=== PATIENT | male | born 1990 | race Caucasian/White ===

== ENCOUNTER 2019-01-16 09:15 | Emergency (ER) | payer BC ==
--- NOTE | 2019-01-16 09:44 | EDM.PDOC ---
ED HPI GENERAL MEDICAL PROBLEM - General Chief Complaint: Chest Pain Stated Complaint: CHEST PAIN Time Seen by Provider: 01/16/19 09:44 - History of Present Illness INITIAL COMMENTS - FREE TEXT/NARRATIVE: HISTORY AND PHYSICAL: History of present illness: Patient is a 28-year-old white male presents with concern of chest pain this is vaguely described without associated shortness breath palpitations nausea vomiting or diaphoresis. Review of systems: As per history of present illness and below otherwise all systems reviewed and negative. Past medical history: As per history of present illness and as reviewed below otherwise noncontributory. Surgical history: As per history of present illness and as reviewed below otherwise noncontributory. Social history: No reported history of drug or alcohol abuse. Family history: As per history of present illness and as reviewed below otherwise noncontributory. Physical exam: HEENT: Atraumatic, normocephalic, pupils reactive, negative for conjunctival pallor or scleral icterus, mucous membranes moist, throat clear, neck supple, nontender, trachea midline. Lungs: Clear to auscultation, breath sounds equal bilaterally, chest nontender. Heart: S1S2, regular, negative for clicks, rubs, or JVD. Abdomen: Soft, nondistended, nontender. Negative for masses or hepatosplenomegaly. Negative for costovertebral tenderness. Pelvis: Stable nontender. Genitourinary: Deferred. Rectal: Deferred. Extremities: Atraumatic, negative for cords or calf pain. Neurovascular unremarkable. Neuro: Awake, alert, oriented. Cranial nerves II through XII unremarkable. Cerebellum unremarkable. Motor and sensory unremarkable throughout. Exam nonfocal. Diagnostics: Chest x-ray EKG Therapeutics: None Impression: #1 atypical chest Definitive disposition and diagnosis as appropriate pending reevaluation and review of above. Chest Pain Score (Numeric/FACES): 7 - Related Data Allergies Allergy/AdvReac Type Severity Reaction Status Date / Time No Known Allergies Allergy Verified 01/16/19 09:21 Home Meds: Home Meds . [No Known Home Meds] 01/16/19 [History] Past Medical History Cardiovascular History: Reports: [place] Psychiatric History: Reports: Anxiety - Infectious Disease History Infectious Disease History: Reports: None - Past Surgical History Musculoskeletal Surgical History: Reports: Shoulder Surgery Social & Family History - Family History Family Medical History: Noncontributory - Tobacco Use Smoking Status *Q: Current Every Day Smoker Years of Tobacco use: 3 Packs/Tins Daily: 1 - Caffeine Use Caffeine Use: Reports: Coffee, Energy Drinks - Recreational Drug Use Recreational Drug Use: No ED ROS GENERAL - Review of Systems Review Of Systems: ROS reveals no pertinent complaints other than HPI. ED EXAM, GENERAL - Physical Exam Exam: See Below (See dictation) Course - Vital Signs Last Recorded V/S: Last Vital Signs Temp 36.3 C 01/16/19 09:23 Pulse 75 01/16/19 09:23 Resp 18 01/16/19 09:23 BP 133/86 01/16/19 09:23 Pulse Ox 98 01/16/19 09:23 - Orders/Labs/Meds Orders: Active Orders 24 hr Category Date Time Status EKG 12 Lead [EKG Documentation Completion] [RC] STAT Care 01/16/19 09:21 Active Chest 1V Frontal [CR] Stat Exams 01/16/19 09:21 Taken Departure - Departure Time of Disposition: 09:43 Disposition: Home, Self-Care 01 Condition: Good Clinical Impression: Atypical chest pain - Discharge Information Additional Instructions: The following information is given to patients seen in the emergency department who are being discharged to home. This information is to outline your options for follow-up care. We provide all patients seen in our emergency department with a follow-up referral. The need for follow-up, as well as the timing and circumstances, are variable depending upon the specifics of your emergency department visit. If you don't have a primary care physician on staff, we will provide you with a referral. We always advise you to contact your personal physician following an emergency department visit to inform them of the circumstance of the visit and for follow-up with them and/or the need for any referrals to a consulting specialist. The emergency department will also refer you to a specialist when appropriate. This referral assures that you have the opportunity for followup care with a specialist. All of these measure are taken in an effort to provide you with optimal care, which includes your followup. Under all circumstances we always encourage you to contact your private physician who remains a resource for coordinating your care. When calling for followup care, please make the office aware that this follow-up is from your recent emergency room visit. If for any reason you are refused follow-up, please contact the [facility] emergency department at and asked to speak to the emergency department charge nurse. [facility] [address] [place] [id number] Stop smoking follow-up primary care above return as needed as discussed - My Orders Last 24 Hours: My Active Orders 01/16/19 09:21 EKG 12 Lead [EKG Documentation Completion] [RC] STAT Chest 1V Frontal [CR] Stat - Assessment/Plan Last 24 Hours: My Active Orders 01/16/19 09:21 EKG 12 Lead [EKG Documentation Completion] [RC] STAT Chest 1V Frontal [CR] Stat
--- NOTE | 2019-01-16 10:14 | CR ---
INDICATION: Chest pain, extremity weakness TECHNIQUE: Chest 1 view. COMPARISON: None available FINDINGS: Heart is normal in size. The pulmonary vasculature is normal limits. The lungs clear. There is an abnormal appearance of the distal right clavicle which could be postsurgical or posttraumatic. IMPRESSION: 1. Negative for acute cardiopulmonary process. 2. Abnormal appearance of the distal right clavicle, which could be post surgical or post traumatic. Recommend correlation with patient history. Dictated by Lauryn Pisano MD @ 01/16/2019 10:12:52 AM Dictated by: Lauryn Pisano MD @ 01/16/2019 10:13:14 (Electronically Signed)
== END 2019-01-16 09:52 | disposition home or self-care (01) ==
LOC: MW.ED 09:15
DX: R07.89 Other chest pain (principal); I25.2 Old myocardial infarction; F17.200 Nicotine dependence, unspecified, uncomplicated
CPT/HCPCS: 71045; 71045-26; 93005; 99282; 99285-25

== ENCOUNTER 2020-08-14 12:40 | Emergency (ER) | payer BC, OTHER ==
--- NOTE | 2020-08-14 13:04 | PCM.EKG ---
#1 Interpretation EKG Date: 08/14/20 Time: 12:58 Rhythm: NSR Rate (Beats/Min): 63 ST-T: Normal
[2020-08-14 13:40] LABS: BLOOD UREA NITROGEN,BUN 7 mg/dL (7.0-18.0); CARBON DIOXIDE,CO2 27.9 mmol/L (21.0-32.0); CHLORIDE,CL 105 mmol/L (98-107); GLUCOSE RANDOM 96 mg/dL (74-106); POTASSIUM,K 4.2 mmol/L (3.5-5.1); SODIUM,NA 140 mmol/L (136-148)
--- NOTE | 2020-08-14 15:14 | EDM.PDOC ---
ED HPI GENERAL MEDICAL PROBLEM - General Chief Complaint: Respiratory Problem Stated Complaint: COUGH / SOB Time Seen by Provider: 08/14/20 12:42 Source of Information: Reports: Patient History Limitations: Reports: No Limitations - History of Present Illness INITIAL COMMENTS - FREE TEXT/NARRATIVE: HISTORY AND PHYSICAL: History of present illness: Is a 30-year-old male who presents to the ED today with concern of cough, inspirational chest pain, and shortness of breath x 2 days. Patient states that initially when the symptoms started 2 to 3 days ago, it began with diarrhea and nausea. Patient states the diarrhea has subsided but he has developed a cough and states that he has chest pain that is worse when he takes a deep breath in and is nonexertional. Patient also complains of shortness of breath stating he feels like he "needs to take deep breaths "every once in a while. Patient states that he does smoke cigarettes does have a baseline cough but states that he has noticed a worsening cough than usual. Patient states he is concerned of COVID-19 infection. Denies any other symptoms or concerns. Patient denies fever, chills, chest pain, shortness of breath, or cough. Denies headache, neck stiff ness, change in vision, syncope, or near syncope. Denies nausea, vomiting, abdominal pain, diarrhea, constipation, or dysuria. Has not noted any blood in urine or stool. Patient has been eating and drinking appropriately. Review of systems: As per history of present illness and below otherwise all systems reviewed and negative. Past medical history: As per history of present illness and as reviewed below otherwise noncontributory. Surgical history: As per history of present illness and as reviewed below otherwise noncontributory. Social history: See social history for further information Family history: As per history of present illness and as reviewed below otherwise noncontributory. Physical exam: General: Patient is alert, oriented, and in no acute distress. Patient sitting comfortably on exam table. Vitals stable and reviewed by me. HEENT: Atraumatic, normocephalic, pupils equal and reactive bilaterally, negative for conjunctival pallor or scleral icterus, mucous membranes moist, TMs normal bilaterally, throat clear, neck supple, nontender, trachea midline. No drooling or trismus noted. No meningeal signs. No hot potato voice noted. Lungs: Clear to auscultation, breath sounds equal bilaterally, chest nontender. Heart: S1S2, regular rate and rhythm without overt murmur Abdomen: Soft, nondistended, nontender. Negative for masses or hepatosplenomegaly. Negative for costovertebral tenderness. Pelvis: Stable nontender. Genitourinary: Deferred. Rectal: Deferred. Skin: Intact, warm, dry. No lesions or rashes noted. Extremities: Atraumatic, negative for cords or calf pain. Neurovascular unremarkable. Neuro: Awake, alert, oriented. Cranial nerves II through XII unremarkable. Cerebellum unremarkable. Motor and sensory unremarkable throughout. Exam nonfocal. Notes: Patient is a 30-year-old male who presents to the ED today secondary to nonexertional inspirational chest pain, worsening cough, and shortness of breath that has been constant x2 days. On initial exam, patient is vitally stable, nontoxic, and well-appearing. Patient does have an extensive smoking history but is otherwise low risk for ACS with a heart score of 2, low risk. Will perform cardiac evaluation. See Dr. Dowling's dictation for specific EKG interpretation. Otherwise, no STEMI, normal sinus rhythm CBC is remarkable for a mild leukocytosis at 13.7 without signs of shift. Remainder of CBC is unremarkable. CMP unremarkable. Troponin is negative. Covid negative. Chest x-ray shows mild hyperinflation and central bronchial thickening without dense consolidation. Upon reevaluation of patient, he remains vitally stable and comfortable throughout stay in ED. Patient does not have a diagnosis of known COPD, however, does express worsening chronic cough, with extensive smoking history of 1 pack a day for "many years" with hyperinflation on CXR with bronchial thickening, will treat as a possible COPD exacerbation vs acute bronchitis with Azithromycin, Medrol Dose pack, and albuterol inhaler with instruction for close follow up with his primary care provider. Signs and symptoms that were prompt return to the ED thoroughly discussed with patient. Discussed importance for follow-up with a primary care provider. Voices understanding and is agreeable to plan of care. Denies any further questions or concerns at this time. Diagnostics: EKG, CBC, CMP, UA, chest x-ray, troponin, COVID Therapeutics: None Prescription: Azithromycin, Medrol dose pack, Albuterol inhaler Impression: Acute bronchitis Plan: 1. Use cough drops and/or other over the counter medications as needed for throat discomfort as discussed. Drink small but frequent sips of fluid to prevent dehydration. Stop smoking. 2. Alternate Ibuprofen and Tylenol as directed for pain and discomfort. Take medication as prescribed. 3. Follow up with your primary care provider as discussed. 4. Return to the ED as needed and as discussed. Definitive disposition and diagnosis as appropriate pending reevaluation and review of above. Chest Pain Score (Numeric/FACES): 4 - Related Data Allergies Allergy/AdvReac Type Severity Reaction Status Date / Time No Known Allergies Allergy Verified 01/16/19 09:21 Home Meds: Home Meds Albuterol Sulfate [Proair Hfa] 8.5 gm IH Q8HR PRN #1 [email or web address] 08/14/20 [Rx] Azithromycin 250 mg PO DAILY 5 Days #6 tablet 08/14/20 [Rx] methylPREDNISolone [Medrol] 4 mg PO ASDIRECTED #1 dosepk 08/14/20 [Rx] Past Medical History - Past Health History Medical/Surgical History: Denies Medical/Surgical History Cardiovascular History: Reports: [place] Psychiatric History: Reports: Anxiety - Infectious Disease History Infectious Disease History: Reports: None - Past Surgical History HEENT Surgical History: Reports: Oral Surgery Musculoskeletal Surgical History: Reports: Shoulder Surgery Social & Family History - Family History Family Medical History: No Pertinent Family History - Caffeine Use Caffeine Use: Reports: None - Recreational Drug Use Recreational Drug Use: No ED ROS GENERAL - Review of Systems Review Of Systems: Comprehensive ROS is negative, except as noted in HPI. ED EXAM, GENERAL - Physical Exam Exam: See Below (see dictation) Course - Vital Signs Last Recorded V/S: Last Vital Signs Temp 97.0 F 08/14/20 12:51 Pulse 73 08/14/20 12:51 Resp 17 08/14/20 12:51 BP 148/103 H 08/14/20 12:51 Pulse Ox 97 08/14/20 12:51 - Orders/Labs/Meds Orders: Active Orders 24 hr Category Date Time Status EKG Documentation Completion [RC] STAT Care 08/14/20 12:55 Active Chest 1V Frontal [CR] Stat Exams 08/14/20 12:59 Ordered Labs: Laboratory Tests 08/14/20 08/14/20 08/14/20 Range/Units 12:59 13:07 13:07 WBC 13.74 H (4.0-11.0) K/uL RBC 5.15 (4.50-5.90) M/uL Hgb 15.5 (13.0-17.0) g/dL Hct 45.4 (38.0-50.0) % MCV 88.2 (80.0-98.0) fL MCH 30.1 (27.0-32.0) pg MCHC 34.1 (31.0-37.0) g/dL RDW Std Deviation 44.1 (28.0-62.0) fl RDW Coeff of Isaías 14 (11.0-15.0) % Plt Count 215 (150-400) K/uL MPV 10.20 (7.40-12.00) fL Neut % (Auto) 71.1 (48.0-80.0) % Lymph % (Auto) 21.3 (16.0-40.0) % Stanley % (Auto) 6.0 (0.0-15.0) % Eos % (Auto) 1.2 (0.0-7.0) % Baso % (Auto) 0.4 (0.0-1.5) % Neut # (Auto) 9.8 H (1.4-5.7) K/uL Lymph # (Auto) 2.9 H (0.6-2.4) K/uL Stanley # (Auto) 0.8 (0.0-0.8) K/uL Eos # (Auto) 0.2 (0.0-0.7) K/uL Baso # (Auto) 0.1 (0.0-0.1) K/uL Nucleated RBC % 0.0 /100WBC Nucleated RBCs # 0 K/uL Sodium 140 (136-148) mmol/L Potassium 4.2 (3.5-5.1) mmol/L Chloride 105 (98-107) mmol/L Carbon Dioxide 27.9 (21.0-32.0) mmol/L BUN 7 (7.0-18.0) mg/dL Creatinine 1.2 (0.8-1.3) mg/dL Est Cr Clr Drug Dosing 91.25 mL/min Estimated GFR (MDRD) > 60.0 ml/min Glucose 96 (74-106) mg/dL Calcium 9.1 (8.5-10.1) mg/dL Total Bilirubin 0.4 (0.2-1.0) mg/dL AST 34 (15-37) IU/L ALT 51 (14-63) IU/L Alkaline Phosphatase 84 (46-116) U/L Troponin I < 0.050 (0.000-0.056) ng/mL Total Protein 7.2 (6.4-8.2) g/dL Albumin 3.7 (3.4-5.0) g/dL Globulin 3.5 (2.6-4.0) g/dL Albumin/Globulin Ratio 1.1 (0.9-1.6) SARS-CoV-2 RNA (VIGNESH) NEGATIVE (NEGATIVE) Departure - Departure Time of Disposition: 15:07 Disposition: Home, Self-Care 01 Clinical Impression: Acute bronchitis Qualifiers: Bronchitis organism: unspecified organism Qualified Code(s): J20.9 - Acute bronchitis, unspecified - Discharge Information Prescriptions: methylPREDNISolone [Medrol] 4 mg PO ASDIRECTED #1 dosepk Albuterol Sulfate [Proair Hfa] 8.5 gm IH Q8HR PRN #1 hfa.[email or web address] PRN Reason: Cough Referrals: Grey Ellington, [employer] [Primary Care Provider] - Additional Instructions: The following information is given to patients seen in the emergency department who are being discharged to home. This information is to outline your options for follow-up care. We provide all patients seen in our emergency department with a follow-up referral. The need for follow-up, as well as the timing and circumstances, are variable depending upon the specifics of your emergency department visit. If you don't have a primary care physician on staff, we will provide you with a referral. We always advise you to contact your personal physician following an emergency department visit to inform them of the circumstance of the visit and for follow-up with them and/or the need for any referrals to a consulting specialist. The emergency department will also refer you to a specialist when appropriate. This referral assures that you have the opportunity for follow-up care with a specialist. All of these measure are taken in an effort to provide you with optimal care, which includes your follow-up. Under all circumstances we always encourage you to contact your private physician who remains a resource for coordinating your care. When calling for follow-up care, please make the office aware that this follow-up is from your recent emergency room visit. If for any reason you are refused follow-up, please contact the [facility] Emergency Department at and asked to speak to the emergency department charge nurse. [facility] [address] [place] [address] [facility] [address] [place] [phone] 1. Use cough drops and/or other over the counter medications as needed for throat discomfort as discussed. Drink small but frequent sips of fluid to prevent dehydration. Stop smoking. 2. Alternate Ibuprofen and Tylenol as directed for pain and discomfort. Take medication as prescribed. 3. Follow up with your primary care provider as discussed. 4. Return to the ED as needed and as discussed. Sepsis Event Note (ED) - Evaluation Sepsis Screening Result: No Definite Risk - Focused Exam Vital Signs: Vital Signs Temp Pulse Resp BP Pulse Ox 08/14/20 12:51 97.0 F 73 17 148/103 H 97 - My Orders Last 24 Hours: My Active Orders 08/14/20 12:55 EKG Documentation Completion [RC] STAT 08/14/20 12:59 Chest 1V Frontal [CR] Stat - Assessment/Plan Last 24 Hours: My Active Orders 08/14/20 12:55 EKG Documentation Completion [RC] STAT 08/14/20 12:59 Chest 1V Frontal [CR] Stat
--- NOTE | 2020-08-14 15:18 | CR ---
EXAM DATE: 08/14/20 PATIENT'S AGE: 30 Patient: NEFTALI SINHA Facility: [facility] Site . Site : [id number] Study: XRay-Chest -08/14/2020 2:13:27 PM Ordering Physician: ed provider Final Report: Indication: Chest pain shortness of breath Comparison: Single-view chest January 16, 2019 Technique: Single AP view chest Findings: There is hyperinflation and mild central bronchial thickening. There is no focal consolidation, effusion, or pneumothorax. The cardiomediastinal silhouette is within normal limits. The bony thorax is grossly intact. Impression: Mild hyperinflation and central bronchial thickening without dense consolidation. Dictated by Ranjit Moies MD @ 08/14/2020 2:37:59 PM Signed by: Ranjit Moise MD @08/14/2020 2:37:59 PM (Electronic Signature) Report Signed by Proxy. [email or web address]
== END 2020-08-14 15:17 | disposition home or self-care (01) ==
LOC: MW.ED 12:40
DX: J20.9 Acute bronchitis, unspecified (principal); I25.2 Old myocardial infarction; Z20.822 Contact with and (suspected) exposure to COVID-19
CPT/HCPCS: 36415; 71045; 71045-26; 80053; 84484; 85025; 93005; 93010; 99283; 99285-25; U0002

== ENCOUNTER 2020-09-07 03:02 | Emergency (ER) | payer OTHER ==
--- NOTE | 2020-09-07 03:07 | EDM.PDOC ---
ED HPI GENERAL MEDICAL PROBLEM - General Chief Complaint: Respiratory Problem Stated Complaint: SHORTNESS OF BREATH Time Seen by Provider: 09/07/20 03:03 Source of Information: Reports: Patient, EMS, Police History Limitations: Reports: No Limitations - History of Present Illness INITIAL COMMENTS - FREE TEXT/NARRATIVE: 30-year-old male no past medical history presents for shortness of breath. History is from patient, EMS, police. Patient was arrested for driving under the influence. He was noted to have no respiratory distress, speaking normally, ambulating normally, aggressive towards police. Shortly after arrival to alf patient began complaining of shortness of breath and inability to speak. Patient notes that the symptoms have been going on for roughly 1 month. He notes that he has an inhaler which does not seem to help. He was seen in the emergency department a couple of weeks ago and had a negative emergent work-up. Middle Back Pain Score (Numeric/FACES): 8 - Related Data Allergies Allergy/AdvReac Type Severity Reaction Status Date / Time No Known Allergies Allergy Verified 01/16/19 09:21 Home Meds: Home Meds Albuterol Sulfate [Proair Hfa] 8.5 gm IH Q8HR PRN #1 hfa.[email or web address] 08/14/20 [Rx] Azithromycin 250 mg PO DAILY 5 Days #6 tablet 08/14/20 [Rx] methylPREDNISolone [Medrol] 4 mg PO ASDIRECTED #1 dosepk 08/14/20 [Rx] Past Medical History - Past Health History Medical/Surgical History: Denies Medical/Surgical History Cardiovascular History: Reports: [place] Psychiatric History: Reports: Anxiety - Infectious Disease History Infectious Disease History: Reports: None - Past Surgical History HEENT Surgical History: Reports: Oral Surgery Musculoskeletal Surgical History: Reports: Shoulder Surgery Social & Family History - Family History Family Medical History: No Pertinent Family History - Caffeine Use Caffeine Use: Reports: None ED ROS GENERAL - Review of Systems Review Of Systems: Comprehensive ROS is negative, except as noted in HPI. ED EXAM, GENERAL - Physical Exam Exam: See Below Exam Limited By: No Limitations General Appearance: Alert, WD/WN, No Apparent Distress, Anxious Eye Exam: Bilateral Eye: EOMI, PERRL Ears: Normal External Exam Throat/Mouth: Normal Voice, No Airway Compromise Head: Atraumatic, Normocephalic Neck: Normal Inspection, Non-Tender Respiratory/Chest: No Respiratory Distress, Lungs Clear, Normal Breath Sounds, No Accessory Muscle Use Cardiovascular: Normal Peripheral Pulses, Regular Rate, Rhythm GI/Abdominal: Soft, Non-Tender Extremities: Normal Inspection Neurological: Alert Psychiatric: Normal Affect, Normal Mood, Anxious Skin Exam: Warm, Dry, Intact #1 Interpretation EKG Date: 09/07/20 Time: 03:08 Rhythm: NSR Rate (Beats/Min): 105 [place]: Normal P-Wave: Present QRS: Normal ST-T: Normal QT: Normal NH/PQ Interval: 154 EKG Interpretation Comments: normal EKG Course - Vital Signs Last Recorded V/S: Last Vital Signs Temp 97.8 F 09/07/20 03:04 Pulse 92 09/07/20 03:04 Resp 26 H 09/07/20 03:04 BP 131/101 H 09/07/20 03:04 Pulse Ox 100 09/07/20 03:04 - Orders/Labs/Meds Orders: Active Orders 24 hr Category Date Time Status EKG 12 Lead [EKG Documentation Completion] [RC] STAT Care 09/07/20 03:04 Active Chest 1V Frontal [CR] Stat Exams 09/07/20 03:04 Taken - Re-Assessments/Exams Free Text/Narrative Re-Assessment/Exam: 09/07/20 03:07 We will get chest x-ray and EKG to rule out emergent cardiopulmonary pathology. We will follow up results and disposition accordingly 09/07/20 03:58 Chest x-ray and EKG are unremarkable. Patient was able to ambulate to bathroom without assistance. Will discharge to custody of PD. Return precautions discussed and documented in educational discharge instructions. Departure - Departure Time of Disposition: 03:58 Disposition: DC/Tfer to Court of Law En 21 Condition: Good Clinical Impression: Anxiety - Discharge Information Instructions: Managing Anxiety, Adult Forms: ED Department Discharge Additional Instructions: Your emergency department work-up was unremarkable. You should follow-up with a primary care physician. If you are experiencing chest pain, difficulty breathing, or any new or concerning symptom development you are encouraged to return to the emergency department immediately. The following information is given to patients seen in the emergency department who are being discharged to home. This information is to outline your options for follow-up care. We provide all patients seen in our emergency department with a follow-up referral. The need for follow-up, as well as the timing and circumstances, are variable depending upon the specifics of your emergency department visit. If you don't have a primary care physician on staff, we will provide you with a referral. We always advise you to contact your personal physician following an emergency department visit to inform them of the circumstance of the visit and for follow-up with them and/or the need for any referrals to a consulting specialist. The emergency department will also refer you to a specialist when appropriate. This referral assures that you have the opportunity for follow-up care with a specialist. All of these measure are taken in an effort to provide you with optimal care, which includes your follow-up. Under all circumstances we always encourage you to contact your private physician who remains a resource for coordinating your care. When calling for follow-up care, please make the office aware that this follow-up is from your recent emergency room visit. If for any reason you are refused follow-up, please contact the [facility] Emergency Department at and asked to speak to the emergency department charge nurse. Please follow up with your primary care physician. If you do not have a primary care physician, see below: [facility] [address] [place] [id number] [facility] [address] [place] [id number] [facility] [address] [place] [id number] Sepsis Event Note (ED) - Focused Exam Vital Signs: Vital Signs Temp Pulse Resp BP Pulse Ox 09/07/20 03:04 97.8 F 92 26 H 131/101 H 100 - My Orders Last 24 Hours: My Active Orders 09/07/20 03:04 EKG 12 Lead [EKG Documentation Completion] [RC] STAT Chest 1V Frontal [CR] Stat - Assessment/Plan Last 24 Hours: My Active Orders 09/07/20 03:04 EKG 12 Lead [EKG Documentation Completion] [RC] STAT Chest 1V Frontal [CR] Stat
--- NOTE | 2020-09-07 04:53 | CR ---
INDICATION: Shortness of breath. TECHNIQUE: Portable AP chest radiograph. COMPARISON: 08/14/2020. FINDINGS: Low lung volumes without focal opacity, pneumothorax, or pleural effusion. Normal cardiac and mediastinal contours. IMPRESSION: Low volume study without acute cardiopulmonary findings. Dictated by Asad Doss MD @ 09/07/2020 4:51:18 AM Dictated by: Asad Doss MD @ 09/07/2020 04:51:25 (Electronically Signed)
== END 2020-09-07 04:07 | disposition home or self-care (01) ==
LOC: MW.ED 03:02
DX: F41.9 Anxiety disorder, unspecified (principal)
CPT/HCPCS: 71045; 71045-26; 93005; 93010; 99283; 99285-25

== ENCOUNTER 2020-11-19 15:09 | Emergency (ER) | payer OTHER ==
[2020-11-19] MEDS ORDERED: Sodium Chloride 0.9% 1,000 ML IV ONE ×2 (16:58→17:44)
[2020-11-19] MEDS ORDERED: Sodium Chloride 0.9% 2.5 ML Syringe FLUSH PRN (16:58)
[2020-11-19] MEDS ORDERED: Sodium Chloride 0.9% 10 ML Syringe FLUSH PRN (16:58)
--- NOTE | 2020-11-19 17:25 | PCM.EKG ---
#1 Interpretation EKG Date: 11/19/20 Time: 17:20 Rhythm: NSR Rate (Beats/Min): 56 [place]: Normal P-Wave: Present QRS: Normal ST-T: Normal QT: Normal OR/PQ Interval: 158 Comparison: No Change EKG Interpretation Comments: no acute ischemic changes
[2020-11-19] MEDS ORDERED: Ketorolac 30 MG/ML SDV IVPUSH ONE (17:42)
[2020-11-19] MEDS ORDERED: Ondansetron 4 MG/2 ML SDV IVPUSH ONE (17:42)
--- NOTE | 2020-11-19 18:10 | CR ---
INDICATION: N/V/D. TECHNIQUE: Chest 1 view. COMPARISON: 09/07/20 FINDINGS: Cardiovascular and mediastinum: Heart size and vasculature are normal in caliber and appearance. Mediastinum is within normal limits. Lungs and pleural space: Lungs are clear. No sign of infiltrate or mass. No sign of pleural effusion. No pneumothorax. Bones and soft tissues: No significant findings. IMPRESSION: Unremarkable chest. Dictated by: Mick Moy MD @ 11/19/2020 18:08:14 (Electronically Signed)
[2020-11-19 18:11] LABS: BLOOD UREA NITROGEN,BUN 6 mg/dL (7.0-18.0); CARBON DIOXIDE,CO2 25.1 mmol/L (21.0-32.0); CHLORIDE,CL 104 mmol/L (98-107); GLUCOSE RANDOM 99 mg/dL (74-106); LIPASE 72 U/L (73-393); POTASSIUM,K 4.2 mmol/L (3.5-5.1); SODIUM,NA 140 mmol/L (136-148)
[2020-11-19] MEDS ORDERED: Metoclopramide 10 MG/2 ML SDV IV ONE (18:34)
[2020-11-19 19:05] LABS: INFLUENZA A NAA NEGATIVE (NEGATIVE); INFLUENZA B NAA NEGATIVE (NEGATIVE)
[2020-11-19 19:08] LABS: CORONAVIRUS COVID-19 NAA NEGATIVE (NEGATIVE)
--- NOTE | 2020-11-19 19:09 | EDM.PDOC ---
ED HPI GENERAL MEDICAL PROBLEM - General Chief Complaint: General Stated Complaint: NAUSEA Time Seen by Provider: 11/19/20 15:11 Source of Information: Reports: Patient History Limitations: Reports: No Limitations - History of Present Illness INITIAL COMMENTS - FREE TEXT/NARRATIVE: HISTORY AND PHYSICAL: History of present illness: Patient is a 30-year-old male who presents emergency room today with concern of nausea, vomiting, diarrhea and upper abdominal pain that has started today. Patient states 1 week ago, he had a cough, loss of taste and smell, and stuffy nose. Patient states that resolved but today he began feeling unwell again. Patient states that he took ibuprofen and some Tylenol earlier today with mild relief of his symptoms. Patient states that he does smoke so does have a "chronic smoker's cough "and states that this has improved since 1 week ago. Patient states when he did have his symptoms 1 week ago, he did have chest pain and shortness of breath but this is now improved. Patient denies fever, chills, chest pain, shortness of breath. Denies headache, neck stiff ness, change in vision, syncope, or near syncope. Denies constipation, or dysuria. Has not noted any blood in urine or stool. Patient has been eating and drinking appropriately. Review of systems: As per history of present illness and below otherwise all systems reviewed and negative. Past medical history: As per history of present illness and as reviewed below otherwise noncontributory. Surgical history: As per history of present illness and as reviewed below otherwise noncontributory. Social history: See social history for further information Family history: As per history of present illness and as reviewed below otherwise noncontributory. Physical exam: General: Patient is alert, oriented, and in no acute distress. Patient sitting comfortably on exam table. Vitals stable and reviewed by me. HEENT: Atraumatic, normocephalic, pupils equal and reactive bilaterally, negative for conjunctival pallor or scleral icterus, mucous membranes moist, TMs normal bilaterally, throat clear, neck supple, nontender, trachea midline. No drooling or trismus noted. No meningeal signs. No hot potato voice noted. Lungs: Clear to auscultation, breath sounds equal bilaterally, chest nontender. Heart: S1S2, regular rate and rhythm without overt murmur Abdomen: Soft, nondistended, mild upper abdominal tenderness without guarding, negative carey/negative rebound. Negative for masses or hepatosplenomegaly. Negative for costovertebral tenderness. Pelvis: Stable nontender. Genitourinary: Deferred. Rectal: Deferred. Skin: Intact, warm, dry. No lesions or rashes noted. Extremities: Atraumatic, negative for cords or calf pain. Neurovascular unremarkable. Neuro: Awake, alert, oriented. Cranial nerves II through XII unremarkable. Cerebellum unremarkable. Motor and sensory unremarkable throughout. Exam nonfocal. Notes: Patient is a 30-year-old, otherwise healthy male, who presents emergency room today with concern of nausea, vomiting, diarrhea and upper abdominal pain starting this morning with a recent history of cough, chest pain, shortness of breath which is now improved. Upon arrival to the ED, patient is vitally stable and well-appearing on exam. Patient does have some mild upper abdominal tenderness with negative rebound and negative Carey. Will obtain cardiac evaluation as well as provide fluids, Zofran and reassess patient. See Dr. King's dictation for specific EKG interpretation. However, normal sinus rhythm without STEMI CBC shows a leukocytosis of 14.75 (Lactate is within normal limits at 0.9 ), otherwise mild derangements of CBC unremarkable. CMP mild derangements are unremarkable. Lipase is within normal limits. Troponin is negative. Urinalysis is clear of infection. Covid and influenza negative. Chest x-ray shows no acute cardiopulmonary findings. While awaiting for abdominal pelvic CT scan, patient told nursing staff he wanted to leave the emergency room AGAINST MEDICAL ADVICE. The patient is clinically not intoxicated, free from distracting pain, appears to have intact insight, judgment and reason and in my medical opinion has the capacity to make decisions. The patient is also not under any duress to leave the hospital. In this scenario, it would be battery to subject a patient to treatment against his will. I have voiced my concerns for the patient's health given that a full evaluation and treatment had not occurred. I have discussed the need for continued evaluation to determine if their symptoms are caused by a condition that present risk of or morbidity. Risks including but not limited to , permanent disability, prolonged hospitalization, prolonged illness, were discussed. I answered all of his questions about his condition and asked them to return to the ED as soon as possible to complete their evaluation, especially if their symptoms worsen or do not improve. I emphasized that leaving against medical advice does not preclude returning here for further evaluation. I asked the patient to return if he change his mind about the further evaluation and treatment. I strongly encouraged the patient to return to this Emergency Department or any Emergency Department at any time, particularly with worsening symptoms. Diagnostics: EKG, CBC, CMP, UA, CXR, Trop, lipase, lactate, Abd/pelvic ct w cont Therapeutics: NS, Toradol, Zofran, Reglan Prescription: None Impression: Nausea and vomiting Diarrhea Abdominal pain, unspecified Leukocytosis Left AGAINST MEDICAL ADVICE Plan: 1. You can alternate ibuprofen and Tylenol as directed for pain and discomfort. 2. Follow-up with a primary care provider as discussed. Return to the ED at anytime for continued evaluation as discussed as needed. Definitive disposition and diagnosis as appropriate pending reevaluation and review of above. Bilateral Abdomen Pain Score (Numeric/FACES): 5 - Related Data Allergies Allergy/AdvReac Type Severity Reaction Status Date / Time No Known Allergies Allergy Verified 01/16/19 09:21 Home Meds: Home Meds Albuterol Sulfate [Proair Hfa] 8.5 gm IH Q8HR PRN #1 hfa.[email or web address] 08/14/20 [Rx] Azithromycin 250 mg PO DAILY 5 Days #6 tablet 08/14/20 [Rx] methylPREDNISolone [Medrol] 4 mg PO ASDIRECTED #1 dosepk 08/14/20 [Rx] Past Medical History - Past Health History Medical/Surgical History: Denies Medical/Surgical History Cardiovascular History: Reports: [place] Musculoskeletal History: Reports: Back Pain, Chronic Psychiatric History: Reports: Anxiety - Infectious Disease History Infectious Disease History: Reports: None - Past Surgical History HEENT Surgical History: Reports: Oral Surgery Musculoskeletal Surgical History: Reports: Shoulder Surgery Social & Family History - Family History Family Medical History: No Pertinent Family History - Tobacco Use Tobacco Use Status *Q: Current Every Day Tobacco User Years of Tobacco use: 10 Packs/Tins Daily: 0.5 - Caffeine Use Caffeine Use: Reports: Coffee - Recreational Drug Use Recreational Drug Use: No ED ROS GENERAL - Review of Systems Review Of Systems: Comprehensive ROS is negative, except as noted in HPI. ED EXAM, GENERAL - Physical Exam Exam: See Below (see dictation) Course - Vital Signs Last Recorded V/S: Last Vital Signs Temp 98.2 F 11/19/20 17:34 Pulse 63 11/19/20 19:01 Resp 18 11/19/20 19:01 BP 143/86 H 11/19/20 19:01 Pulse Ox 97 11/19/20 19:01 - Orders/Labs/Meds Orders: Active Orders 24 hr Category Date Time Status Saline Lock Insert [OM.PC] Stat Oth 11/19/20 16:58 Ordered Labs: Laboratory Tests 11/19/20 11/19/20 11/19/20 Range/Units 17:20 17:20 17:28 WBC 14.75 H (4.0-11.0) K/uL RBC 5.09 (4.50-5.90) M/uL Hgb 14.8 (13.0-17.0) g/dL Hct 43.3 (38.0-50.0) % MCV 85.1 (80.0-98.0) fL MCH 29.1 (27.0-32.0) pg MCHC 34.2 (31.0-37.0) g/dL RDW Std Deviation 40.3 (28.0-62.0) fl RDW Coeff of Iasías 13 (11.0-15.0) % Plt Count 226 (150-400) K/uL MPV 10.40 (7.40-12.00) fL Neut % (Auto) 76.2 (48.0-80.0) % Lymph % (Auto) 18.2 (16.0-40.0) % [place] % (Auto) 4.8 (0.0-15.0) % Eos % (Auto) 0.6 (0.0-7.0) % Baso % (Auto) 0.2 (0.0-1.5) % Neut # (Auto) 11.2 H (1.4-5.7) K/uL Lymph # (Auto) 2.7 H (0.6-2.4) K/uL [place] # (Auto) 0.7 (0.0-0.8) K/uL Eos # (Auto) 0.1 (0.0-0.7) K/uL Baso # (Auto) 0.0 (0.0-0.1) K/uL Nucleated RBC % 0.0 /100WBC Nucleated RBCs # 0 K/uL Sodium 140 (136-148) mmol/L Potassium 4.2 (3.5-5.1) mmol/L Chloride 104 (98-107) mmol/L Carbon Dioxide 25.1 (21.0-32.0) mmol/L BUN 6 L (7.0-18.0) mg/dL Creatinine 0.9 (0.8-1.3) mg/dL Est Cr Clr Drug Dosing 117.83 mL/min Estimated GFR (MDRD) > 60.0 ml/min Glucose 99 (74-106) mg/dL Lactic Acid (0.4-2.0) mmol/L Calcium 8.3 L (8.5-10.1) mg/dL Total Bilirubin 0.3 (0.2-1.0) mg/dL AST 31 (15-37) IU/L ALT 42 (14-63) IU/L Alkaline Phosphatase 79 (46-116) U/L Troponin I < 0.050 (0.000-0.056) ng/mL Total Protein 7.0 (6.4-8.2) g/dL Albumin 3.8 (3.4-5.0) g/dL Globulin 3.2 (2.6-4.0) g/dL Albumin/Globulin Ratio 1.2 (0.9-1.6) Lipase 72 L (73-393) U/L Urine Color Urine Appearance Urine pH (5.0-8.0) Ur Specific [place] (1.001-1.035) Urine Protein (NEGATIVE) mg/dL Urine Glucose (UA) (NEGATIVE) mg/dL Urine Ketones (NEGATIVE) mg/dL Urine Occult Blood (NEGATIVE) Urine Nitrite (NEGATIVE) Urine Bilirubin (NEGATIVE) Urine Urobilinogen (<2.0) EU/dL Ur Leukocyte Esterase (NEGATIVE) Influenza Type A RNA NEGATIVE (NEGATIVE) Influenza Type B RNA NEGATIVE (NEGATIVE) SARS-CoV-2 RNA (VIGNESH) NEGATIVE (NEGATIVE) 11/19/20 11/19/20 Range/Units 18:10 18:25 WBC (4.0-11.0) K/uL RBC (4.50-5.90) M/uL Hgb (13.0-17.0) g/dL Hct (38.0-50.0) % MCV (80.0-98.0) fL MCH (27.0-32.0) pg MCHC (31.0-37.0) g/dL RDW Std Deviation (28.0-62.0) fl RDW Coeff of Isaías (11.0-15.0) % Plt Count (150-400) K/uL MPV (7.40-12.00) fL Neut % (Auto) (48.0-80.0) % Lymph % (Auto) (16.0-40.0) % [place] % (Auto) (0.0-15.0) % Eos % (Auto) (0.0-7.0) % Baso % (Auto) (0.0-1.5) % Neut # (Auto) (1.4-5.7) K/uL Lymph # (Auto) (0.6-2.4) K/uL [place] # (Auto) (0.0-0.8) K/uL Eos # (Auto) (0.0-0.7) K/uL Baso # (Auto) (0.0-0.1) K/uL Nucleated RBC % /100WBC Nucleated RBCs # K/uL Sodium (136-148) mmol/L Potassium (3.5-5.1) mmol/L Chloride (98-107) mmol/L Carbon Dioxide (21.0-32.0) mmol/L BUN (7.0-18.0) mg/dL Creatinine (0.8-1.3) mg/dL Est Cr Clr Drug Dosing mL/min Estimated GFR (MDRD) ml/min Glucose (74-106) mg/dL Lactic Acid 0.9 (0.4-2.0) mmol/L Calcium (8.5-10.1) mg/dL Total Bilirubin (0.2-1.0) mg/dL AST (15-37) IU/L ALT (14-63) IU/L Alkaline Phosphatase (46-116) U/L Troponin I (0.000-0.056) ng/mL Total Protein (6.4-8.2) g/dL Albumin (3.4-5.0) g/dL Globulin (2.6-4.0) g/dL Albumin/Globulin Ratio (0.9-1.6) Lipase (73-393) U/L Urine Color YELLOW Urine Appearance CLEAR Urine pH 6.0 (5.0-8.0) Ur Specific [place] 1.010 (1.001-1.035) Urine Protein NEGATIVE (NEGATIVE) mg/dL Urine Glucose (UA) NEGATIVE (NEGATIVE) mg/dL Urine Ketones NEGATIVE (NEGATIVE) mg/dL Urine Occult Blood NEGATIVE (NEGATIVE) Urine Nitrite NEGATIVE (NEGATIVE) Urine Bilirubin NEGATIVE (NEGATIVE) Urine Urobilinogen 0.2 (<2.0) EU/dL Ur Leukocyte Esterase NEGATIVE (NEGATIVE) Influenza Type A RNA (NEGATIVE) Influenza Type B RNA (NEGATIVE) SARS-CoV-2 RNA (VIGNESH) (NEGATIVE) Meds: Medications Discontinued Medications Generic Name Dose Route Start Last Admin Trade Name Freq PRN Reason Stop Dose Admin Sodium Chloride 1,000 mls @ 999 mls/hr 11/19/20 16:58 11/19/20 17:20 Normal Saline IV 11/19/20 17:58 999 mls/hr BOLUS ONE Administration Sodium Chloride 1,000 mls @ 999 mls/hr 11/19/20 17:44 11/19/20 17:59 Normal Saline IV 11/19/20 18:44 999 mls/hr STAT ONE Administration Iopamidol 100 ml 11/19/20 19:25 Iopamidol 755 Mg/Ml 100 Ml Bottle IVPUSH 11/19/20 19:26 ONETIME ONE Ketorolac Tromethamine 30 mg 11/19/20 17:42 11/19/20 17:56 Ketorolac 30 Mg/Ml Sdv IVPUSH 11/19/20 17:43 30 mg ONETIME ONE Administration Metoclopramide HCl 10 mg 11/19/20 18:34 11/19/20 18:56 Metoclopramide 10 Mg/2 Ml Sdv IV 11/19/20 18:35 10 mg ONETIME ONE Administration Ondansetron HCl 4 mg 11/19/20 17:42 11/19/20 17:57 Ondansetron 4 Mg/2 Ml Sdv IVPUSH 11/19/20 17:43 4 mg ONETIME ONE Administration Sodium Chloride 10 ml 11/19/20 16:58 11/19/20 17:21 Sodium Chloride 0.9% 10 Ml Syringe FLUSH 10 ml ASDIRECTED PRN Administration Keep Vein Open Sodium Chloride 2.5 ml 11/19/20 16:58 11/19/20 17:21 Sodium Chloride 0.9% 2.5 Ml Syringe FLUSH 2.5 ml ASDIRECTED PRN Administration Keep Vein Open Departure - Departure Time of Disposition: 19:34 Disposition: Against Medical Advice 07 Clinical Impression: Nausea and vomiting Qualifiers: Vomiting type: unspecified Vomiting Intractability: non-intractable Qualified Code(s): R11.2 - Nausea with vomiting, unspecified Diarrhea Qualifiers: Diarrhea type: unspecified type Qualified Code(s): R19.7 - Diarrhea, unspecifi ed Abdominal pain Qualifiers: Abdominal location: unspecified location Qualified Code(s): R10.9 - Unspecified abdominal pain Leukocytosis Qualifiers: Leukocytosis type: unspecified Qualified Code(s): D72.829 - Elevated white blood cell count, unspecified - Discharge Information Referrals: Grey Ellington NP [Primary Care Provider] - Forms: ED Department Discharge Additional Instructions: The following information is given to patients seen in the emergency department who are being discharged to home. This information is to outline your options for follow-up care. We provide all patients seen in our emergency department with a follow-up referral. The need for follow-up, as well as the timing and circumstances, are variable depending upon the specifics of your emergency department visit. If you don't have a primary care physician on staff, we will provide you with a referral. We always advise you to contact your personal physician following an emergency department visit to inform them of the circumstance of the visit and for follow-up with them and/or the need for any referrals to a consulting specialist. The emergency department will also refer you to a specialist when appropriate. This referral assures that you have the opportunity for follow-up care with a specialist. All of these measure are taken in an effort to provide you with optimal care, which includes your follow-up. Under all circumstances we always encourage you to contact your private physician who remains a resource for coordinating your care. When calling for follow-up care, please make the office aware that this follow-up is from your recent emergency room visit. If for any reason you are refused follow-up, please contact the [facility] Emergency Department at and asked to speak to the emergency department charge nurse. [facility] [address] [place] [id number] [facility] [address] [place] [id number] 1. You can alternate ibuprofen and Tylenol as directed for pain and discomfort. 2. Follow-up with a primary care provider as discussed. Return to the ED at anytime for continued evaluation as discussed as needed. Sepsis Event Note (ED) - Evaluation Sepsis Screening Result: No Definite Risk - Focused Exam Vital Signs: Vital Signs Temp Pulse Resp BP Pulse Ox 11/19/20 19:01 63 18 143/86 H 97 11/19/20 18:24 59 L 18 125/92 H 97 11/19/20 17:34 98.2 F 71 18 128/81 97 11/19/20 16:49 96.3 F L 70 18 123/78 97 - My Orders Last 24 Hours: My Active Orders 11/19/20 16:58 Saline Lock Insert [OM.PC] Stat - Assessment/Plan Last 24 Hours: My Active Orders 11/19/20 16:58 Saline Lock Insert [OM.PC] Stat
[2020-11-19] MEDS ORDERED: Iopamidol 755 Mg/ML 100 ML Bottle IVPUSH ONE (19:25)
== END 2020-11-19 19:36 | disposition left against medical advice (07) ==
LOC: MW.ED 15:09
DX: R11.2 Nausea with vomiting, unspecified (principal); R19.7 Diarrhea, unspecified; R10.11 Right upper quadrant pain; R10.12 Left upper quadrant pain; D72.829 Elevated white blood cell count, unspecified; I25.2 Old myocardial infarction; Z72.0 Tobacco use; Z79.899 Other long term (current) drug therapy; Z20.822 Contact with and (suspected) exposure to COVID-19
CPT/HCPCS: 0240U; 36415; 71045; 80053; 81003; 83605; 83690; 84484; 85025; 93005; 96374; 96375; 99284; J1885; J2405; J2765; J7030